=== PATIENT | female | born 1955 | race Caucasian/White ===

== ENCOUNTER 2019-08-09 10:50 | Outpatient (CLI) | payer OTHER, MEDICAID, SELFPAY ==
[2019-08-09 11:17] LABS: Basophils Absolute Auto 0.1 K/mm3 (0.0-0.1); Basophils Percent Auto 0.7 % (0.2-1.2); Eosinophils Absolute Auto 0.3 K/mm3 (0-0.3); Hematocrit 41.2 % (37.0-47.0); Hemoglobin 13.4 g/dL (12.0-15.0); Immature Granulocyte Absolute 0.01 K/mm3 (0.00-0.031); Immature Granulocyte Percent A 0.1 % (0-0.5); Lymphocytes Absolute Auto 2.47 K/mm3 (0.9-3.2); Lymphocytes Percent Auto 36.8 % (18.3-44.2); Mean Corpuscular HGB Conc 32.5 g/dl (32-36); Mean Corpuscular Hemoglobin 28.3 pg (26-34); Mean Corpuscular Volume 86.9 fl (80-100); Mean Platelet Volume 11.5 fl (7.4-10.4); Monocytes Absolute Auto 0.6 K/mm3 (0.1-0.6); Monocytes Percent Auto 8.3 % (2.6-8.5); Neutrophils Absolute Auto 3.4 K/mm3 (1.3-6.7); Neutrophils Percent Auto 50.1 % (45.5-73.1); Platelet Count Result 196 k/mm3 (150-375); Red Blood Count 4.74 M/mm3 (4.2-5.4); Red Cell Distribution Width 15.7 % (11.5-14.5); White Blood Count 6.7 K/mm3 (4.5-10.0)
[2019-08-09 11:19] LABS: Blood Urea Nitrogen 22 mg/dL (8-26); Carbon Dioxide 32 mmol/L (22-30); Chloride 96 mmol/L (98-109); Estimated Glomerular Filt Rate 42; Glucose 92 mg/dL (70-105); Potassium 3.7 mmol/L (3.5-4.9); Sodium 139 mmol/L (138-146)
[2019-08-09 14:25] LABS: Iron 88 ug/dL (37-170)
[2019-08-09 14:39] LABS: Percent Iron Saturation 27 % (20-50)
== END 2019-08-09 10:51 | disposition home or self-care (01) ==
PROVIDERS: PCP Family Medicine; Visit Provider Internal Medicine Hematology & Oncology
DX: D64.9 Anemia, unspecified (principal)
CPT/HCPCS: 36415; 80048; 82728; 83540; 83550; 85025

== ENCOUNTER → 2019-11-16 13:00 | Outpatient (CLI) | payer OTHER, MEDICAID, SELFPAY ==
--- NOTE | ~2019-11-16 | XR_ITS ---
EXAMINATION: XR_[id number]_CR DATE: 11/16/2019 13:54 INDICATION: Pleurodynia. TECHNIQUE: An anteroposterior view of the chest on 2 radiographs, 4 views of the right ribs, and 3 vi ews of the left ribs were obtained. COMPARISON: Chest 2 views 06/26/2019, chest CT 03/28/2019 FINDINGS: There is mild scarring at the lung apices. No pleural effusion or pneumothorax. Cardiomegal y is noted. There are changes of posterior fusion procedure in cervical spine. There is an old healed fracture of right 11th rib. There is an old fracture of left 11th rib. IMPRESSION: 1. No acute rib fracture. 2. Mild scarring at the lung apices. 3. Cardiomegaly. Reviewed, dictated and finalized at location E.
== END ==
PROVIDERS: PCP Family Medicine; Visit Provider Family Medicine
DX: R07.81 Pleurodynia (principal)
CPT/HCPCS: 71111

== ENCOUNTER 2019-11-29 13:30 | Outpatient (CLI) | payer OTHER, MEDICAID, SELFPAY ==
--- NOTE | 2019-11-29 13:43 | ECHO_ITS ---
Patient Info Name: Alyssa Poole Age: 64 years : 1955 Gender: Female Ht: 66 in Wt: 130 lbs BSA: 1.66 m2 HR: 74 bpm BP: 156 / 77 mmHg Technical Quality: Good Exam Date: 11/29/2019 2:15 PM Exam Location: [facility] Patient Status: Outpatient Admit Date: 11/29/2019 Staff Ordering Physician: Calos Ramos DO Program Lead: Patt Zelaya RDCS Attending Provider: Calos Ramos DO Referring Physician: Richard LOBO; Exam Type: CA echo doppler color flow Study Info Indications I51.89 - Other ill-defined heart diseases Complete two-dimensional, color flow and Doppler transthoracic echocardiogram is performed. Summary 1. Left ventricular chamber dimension is moderately enlarged. 2. Left ventricular systolic function is severely reduced, estimated at 25-30%. 3. The left ventricular diastolic function is grade II diastolic dysfunction. 4. E/e' 21 is elevated. 5. Global longitudinal strain is abnormal at -10.4%. 6. Left atrial chamber dimension is moderately enlarged. 7. The mitral valve has mildly calcified annulus. 8. There is mild to moderate mitral valve regurgitation. 9. There is mild tricuspid valve regurgitation. 10. Moderate pulmonary hypertension, estimated pulmonary arterial systolic pressure is 52 mmHg. Left Ventricle E/e' 21 is elevated. Global longitudinal strain is abnormal at -10.4%. Left ventricular chamber dimension is moderately enlarged. Left ventricular systolic function is severely reduced, estimated at 25-30%. The left ventricular diastolic function is grade II diastolic dysfunction. Right Ventricle Right ventricular chamber dimension is normal. Right ventricular systolic function is normal. Left Atria Left atrial chamber dimension is moderately enlarged. Right Atria Right atrial chamber dimension is normal. Aortic Valve The aortic valve is trileaflet. There is no aortic valve stenosis. There is no aortic valve regurgitation. Pulmonic Valve There is no pulmonic regurgitation. Mitral Valve The mitral valve has mildly calcified annulus. There is no mitral valve stenosis. There is mild to moderate mitral valve regurgitation. Tricuspid Valve There is mild tricuspid valve regurgitation. Moderate pulmonary hypertension, estimated pulmonary arterial systolic pressure is 52 mmHg. Pericardium/Pleural There is no pericardial effusion. Inferior Vena Cava Normal inferior vena cava with >50% collapse upon inspiration consistent with normal right atrial pressure, 5 mmHg. Aorta The aortic root size at the sinus of Valsalva is normal. Left Ventricular Outflow Tract Name Value Normal LVOT 2D LVOT Diameter 2.0 cm LVOT Doppler LVOT Peak Gradient 5 mmHg LVOT Mean Gradient 3 mmHg LVOT VTI 21 cm LVOT VTI/AV VTI Ratio 0.9 LVOT Stroke Volume 63 ml LVOT CO 14.0 l/min LVOT CI 8.5 l/min/m2 Pulmonic Valve
== END 2019-11-29 13:31 | disposition home or self-care (01) ==
PROVIDERS: PCP Family Medicine; Visit Provider Internal Medicine Cardiovascular Disease
DX: I51.89 Other ill-defined heart diseases (principal); I51.7 Cardiomegaly; I27.20 Pulmonary hypertension, unspecified; I08.1 Rheumatic disorders of both mitral and tricuspid valves
CPT/HCPCS: 93306

== ENCOUNTER 2020-01-20 13:28 | Inpatient (IN) | payer OTHER, MEDICAID, SELFPAY ==
[2020-01-20] VITALS (14 sets, daily range): BP systolic 109–150; BP diastolic 48–73; PULSE 53–63; RESP 10–20; TEMP 36.1–36.4; O2SAT 96–100; BMI 19.9
--- NOTE | ~2020-01-20 | XR_ITS ---
EXAMINATION: XR pelvis 1-2V INDICATION: Pain after fall TECHNIQUE: AP view of the pelvis is obtained. COMPARISON: None available FINDINGS: Bone alignment is normal. There is no fracture. The soft tissues are unremarkable. Mild hip osteoarthritis is noted. A catheter coils in the pelvis or bladder. IMPRESSION: 1. No acute osseous abnormality. Reviewed, dictated and finalized at location A.
--- NOTE | ~2020-01-20 | CT_ITS ---
EXAMINATION: CT abdomen pelvis wo con DATE: 01/20/2020 17:06 INDICATION: Epigastric pain TECHNIQUE: Computed tomography (CT) of the abdomen and pelvis was performed without intravenous contr ast. The dose-length product (DLP) was 456.68 mGy-cm. Automated exposure control and iterative recons truction technique were employed. COMPARISON: 03/28/2019 FINDINGS: There is emphysema and atelectasis in the visualized lung bases. There is left ventricular enlargement of the heart. The liver, spleen, pancreas, and gallbladder are normal. There is intrahepa tic and extrahepatic biliary dilatation. The common bile duct which measures up to 9 mm. No definite stone or stricture is identified. The adrenal glands are unremarkable. There is mild atrophy of the r ight kidney. The left kidney is unremarkable. There is calcified atherosclerosis of the aorta and man y of the other arteries. No pathologically enlarged abdominal or pelvic lymph nodes are identified. A large volume of colonic stool is present. The bladder is decompressed by Wise catheter. There is se peter lumbar spondylosis. A defect in the right ilium likely reflects a bone harvest site. IMPRESSION: 1. Intrahepatic and extrahepatic biliary dilatation of unclear significance given normal liver functi on tests. Consider further evaluation with right upper quadrant ultrasound. Reviewed, dictated and finalized at location A. IMPRESSION: 1. Intrahepatic and extrahepatic biliary dilatation of unclear significance giv en normal liver function tests. Consider further evaluation with right upper qu adrant ultrasound.
--- NOTE | ~2020-01-20 | XR_ITS ---
EXAMINATION: XR chest 1V portable INDICATION: Pain after fall TECHNIQUE: Portable AP chest at 1600 hours COMPARISON: 06/26/2019 FINDINGS: There is stable cardiomegaly. Minimal airspace opacities are present in the lung bases. No pleural effusion or pneumothorax is identified. Electronic devices project external to the patient. IMPRESSION: 1. Stable cardiomegaly. 2. Minimal airspace opacities of the lung bases, consistent with atelectasis versus pneumonia. Reviewed, dictated and finalized at location A. IMPRESSION: 1. Stable cardiomegaly. 2. Minimal airspace opacities of the lung bases, consistent with atelectasis ve rsus pneumonia.
--- NOTE | ~2020-01-20 | XR_ITS ---
EXAMINATION: XR knee RT min 4V DATE: 01/20/2020 16:14 INDICATION: Right knee pain TECHNIQUE: Four views of the right knee were obtained. COMPARISON: None. FINDINGS: Alignment is normal. No fracture or osteochondral lesion. There is mild tricompartmental os teoarthritis characterized by tiny marginal osteophytes. No joint effusion/synovitis. Soft tissues a re unremarkable. IMPRESSION: 1. No acute osseous abnormality. Reviewed, dictated and finalized at location A.
--- NOTE | ~2020-01-20 | XR_ITS ---
EXAMINATION: XR knee LT min 4V DATE: 01/20/2020 16:13 INDICATION: Left knee pain TECHNIQUE: Four views of the left knee were obtained. COMPARISON: None. FINDINGS: Alignment is normal. No fracture or osteochondral lesion. There is mild tricompartmental os teoarthritis characterized by tiny marginal osteophytes. No joint effusion/synovitis. Soft tissues a re unremarkable. IMPRESSION: 1. No acute osseous abnormality. Reviewed, dictated and finalized at location A.
--- NOTE | ~2020-01-20 | US_ITS ---
EXAMINATION: US renal BI DATE: 01/21/2020 08:33 INDICATION: Kidney failure. TECHNIQUE: Multiple ultrasound grayscale images of the kidneys were obtained. COMPARISON: CT abdomen and pelvis 01/20/2020 FINDINGS: The right kidney measures 8.2 x 2.8 x 4.0 cm. The left kidney is obscured by bowel The right kidney d emonstrates normal parenchymal echogenicity. There is no hydronephrosis. The bladder is decompressed by a Iwse catheter. IMPRESSION: 1. Mild atrophy of right kidney. No hydronephrosis. 2. Left kidney not visualized. Left kidney was normal on yesterday's CT. Reviewed, dictated and finalized at location E.
--- NOTE | ~2020-01-20 | CT_ITS ---
EXAMINATION: CT brain wo con INDICATION: Headache and dizziness COMPARISON: 06/26/2019 TECHNIQUE: Standard unenhanced head CT. The dose-length product (DLP) was 605.33 mGy-cm. The mA was a djusted according to patient size. Iterative reconstruction technique was employed. FINDINGS: There is no intracranial hemorrhage, acute infarction, or abnormal mass lesion. The ventric les are normal. There is no abnormal mass effect or midline shift. The vizcarra-white matter differentiat ion is normal. The basal cisterns are patent. The orbits are normal. The paranasal sinuses, mastoids and calvarium are normal. IMPRESSION: 1. No acute intracranial abnormality. Reviewed, dictated and finalized at location A.
--- NOTE | 2020-01-20 14:35 | ECG_ITS ---
Measurements Intervals Irvona Rate: 55 P: 71 VA: 227 QRS: 27 QRSD: 123 T: 75 QT: 494 QTc: 474 Interpretive Statements SINUS BRADYCARDIA WITH FIRST DEGREE AV BLOCK INCOMPLETE LEFT BUNDLE BRANCH BLOCK BORDERLINE R WAVE PROGRESSION, ANTERIOR LEADS BORDERLINE ST-T WAVE ABNORMALITY- INF/LAT LEADS BASELINE ARTIFACT- I, II, III, AVR, AVL, AVF, V3, V5 ABNORMAL ECG Electronically Signed On 01-20-2020 20:15:11 CDT by Calos Ramos D.O.
[2020-01-20 15:06] LABS: Base Excess ABG -2.2 mEq/l (+/-2.0); Fractional Inspired Oxygen 21 %; HCO3 ABG 25.2 mEq/l (22.0-26.0); Methemoglobin ABG 0.1 %THb (0-1.5); Oxygen Content ABG 15.1 %vol (16.0-22.0); Oxygen Saturation ABG 92.4 % (95.0-100.0); Oxyhemoglobin 91.7 % THb (90.0-100.0); PCO2 ABG 55.3 mmHg (35.0-45.0); PO2 ABG 72.5 mmHg (80.0-100.0); PO2 FiO2 Ratio Arterial Blood 3.45 %; Reduced Hemoglobin 7.2 %THb (0-5.0); Total Hemoglobin 11.7 g/dL (12.0-18.0)
[2020-01-20 15:07] LABS: Device ROOM AIR; Modified Allen's Test Pass; Site Drawn RIGHT RADIAL; pH ABG 7.277 (7.350-7.450)
--- NOTE | 2020-01-20 15:13 | PC.NURSE ---
IV obtained, patient is difficult stick. Attempted IV x 2. licensed chemical spray technician attempted blood draw x 2 but was unsucessful, phlebotomy notified.
--- NOTE | 2020-01-20 15:14 | ED.GENADULT ---
HPI - General Adult General Chief complaint: Fall Stated complaint: dizziness, fell overnight, weak Time Seen by Provider: 01/20/20 14:20 Source: patient and family Mode of arrival: EMS Limitations: clinical condition History of Present Illness HPI narrative: This patient is a 64 year old male who presents for evaluation frequent falls. Patient's sister is at bedside and she reports that patient told someone she fell around 5 am this morning. Someone crawled through the window in her house and patien was complaining of headache. Her sister also reports pain has been complaining of abdominal pain for 2 days. Patient is also having intermittent episodes on which she appears lethargic. Related Data Home Medications Medication Instructions Recorded Confirmed Effexor XR 100 mg PO BID 05/19/19 12/05/19 methadone 200 mg PO DAILY 05/19/19 12/05/19 omeprazole 20 mg PO DAILY 05/19/19 12/05/19 albuterol sulfate 1.25 mg INHALATION Q4H PRN 06/26/19 12/05/19 ferrous sulfate 325 mg (65 mg 325 mg PO DAILY 11/06/19 12/05/19 iron) tablet,delayed release sacubitril-valsartan [Entresto] 01/20/20 Allergies Allergy/AdvReac Type Severity Reaction Status Date / Time codeine Allergy Unknown Unknown Verified 12/05/19 14:29 Iodinated Contrast Media Allergy Unknown Unknown Verified 12/05/19 14:29 iodine Allergy Unknown Anaphylactic Verified 12/05/19 14:29 Shock Iodine and Iodide Containing Allergy Unknown Anaphylaxis Verified 12/05/19 14:29 Produc tramadol Allergy Unknown Unknown Verified 12/05/19 14:29 NSAIDS (Non-Steroidal Allergy Unknown Verified 12/05/19 14:29 Anti-Inflamma Contrast Media Allergy Unknown Unknown Uncoded 12/05/19 14:29 Review of Systems Review of Systems: All systems reviewed & are unremarkable except as noted in HPI and below Constitutional: Constitutional: Denies chills, Denies fever(s) and Reports weakness Cardiovascular: Cardiovascular: Denies chest pain Respiratory: Respiratory: Denies cough and Denies dyspnea Gastrointestinal: Gastrointestinal: Reports abdominal pain and Denies nausea Musculoskeletal: Musculoskeletal: Reports back pain and Reports arthralgias Neurologic: Reports headache(s) [facility] Past Medical History Medical History (Updated 01/20/20 @ 19:28 by Opal Gutierrez MD) Anxiety disorder, unspecified Arthritis Atherosclerosis of aorta Chronic bilateral low back pain without sciatica Chronic pain syndrome CKD (chronic kidney disease) stage 3, GFR 30-59 ml/min Combined systolic and diastolic cardiac dysfunction Echocardiogram in January 2019 showed mildly enlarged left ventricular chamber dimension, moderately reduced left ventricular systolic function with an ejection fraction estimated at 40 to 45%, grade 4 diastolic dysfunction, biatrial enlargement, [id number] mitral valve regurgitation, mild tricuspid valve regurgitation. 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 Memory deficits Methadone maintenance therapy patient Mixed hyperlipidemia Mixed incontinence Moderate pulmonary arterial systolic hypertension Estimated pulmonary arterial systolic pressure of 54 mmHg on echocardiogram in January 2019. Myocardial infarct, old Reportedly hospitalized at [facility], treated medically. Neurotic excoriations Raynaud disease She has had extensive testing done by a local cover inspector, for which she ruled
--- NOTE | 2020-01-20 15:46 | PC.NURSE ---
Phlebotomy attempted blood draw, unsuccessful. US nurse notified and states will attempt to obtain blood.
--- NOTE | 2020-01-20 15:50 | PC.NURSE ---
Patient taken to XR/CT, will have US nurse attempt blood draw when return to ED.
[2020-01-20 16:30] LABS: Basophils Absolute Auto 0.1 K/mm3 (0.0-0.1); Basophils Percent Auto 0.8 % (0.2-1.2); Eosinophils Absolute Auto 1.1 K/mm3 (0-0.3); Eosinophils Percent Auto 15.1 % (0-4.4); Hematocrit 31.9 % (37.0-47.0); Hemoglobin 10.8 g/dL (12.0-15.0); Immature Granulocyte Absolute 0.02 K/mm3 (0.00-0.031); Immature Granulocyte Percent A 0.3 % (0-0.5); Lymphocytes Percent Auto 29.3 % (18.3-44.2); Mean Corpuscular HGB Conc 33.9 g/dl (32-36); Mean Corpuscular Hemoglobin 28.8 pg (26-34); Mean Corpuscular Volume 85.1 fl (80-100); Mean Platelet Volume 11.1 fl (7.4-10.4); Monocytes Absolute Auto 0.6 K/mm3 (0.1-0.6); Monocytes Percent Auto 8.8 % (2.6-8.5); Neutrophils Absolute Auto 3.3 K/mm3 (1.3-6.7); Neutrophils Percent Auto 45.7 % (45.5-73.1); Platelet Count Result 191 k/mm3 (150-375); Red Blood Count 3.75 M/mm3 (4.2-5.4); Red Cell Distribution Width 13.2 % (11.5-14.5); White Blood Count 7.2 K/mm3 (4.5-10.0)
--- NOTE | 2020-01-20 16:30 | PC.NURSE ---
Blood obtained per Arnaud ROBERSON, sent to lab at this time.
[2020-01-20 16:35] LABS: Add Urine Microscopic? YES; Appearance Urine Clear (Clear); Bilirubin Urine Negative (Negative); Blood Urine Negative (Negative); Color Urine Straw (Yellow); Glucose Urine UA Negative (Negative); Ketones Urine Negative (Negative); Leukocyte Esterase Ur Trace LEU/UL (Negative); Nitrate Urine Negative (Negative); Protein Urine Negative (Negative); Specific Grav Ur 1.011 (1.001-1.035); Urobilinogen Urine Negative mg/dL (<2.0); WBC Urine 0-3 /hpf
[2020-01-20 16:37] LABS: INR 1.1; Prothrombin Time 14.3 Seconds (11.1-14.7)
[2020-01-20 16:38] LABS: Partial Thromboplastin Time 33.9 SECONDS (22.3-36.8)
[2020-01-20 16:40] LABS: Alanine Aminotransferase 18 U/L (4-35); Albumin Level 3.9 g/dL (3.5-5.1); Alkaline Phosphatase 108 U/L (38-126); Anion Gap 15.4 mmol/L (7-16); Aspartate Amino Transferase 35 U/L (14-36); Bilirubin,Total 0.2 mg/dL (0.2-1.3); Blood Urea Nitrogen 93 mg/dL (7-17); Calcium 8.4 mg/dL (8.4-10.2); Carbon Dioxide 25 mmol/L (22-30); Chloride 97 mmol/L (98-107); Estimated CRCL calculation 10 ml/min; Estimated Glomerular Filt Rate 9; Glucose 73 mg/dL (65-105); Potassium 4.4 mmol/L (3.4-5.0); Sodium 133 mmol/L (137-145)
[2020-01-20 16:41] LABS: Lipase 87 U/L (23-300); Magnesium 2.6 mg/dL (1.6-2.3)
[2020-01-20 16:48] LABS: Lactic Acid Reflex < 0.5 mmol/L (0.7-2.1)
[2020-01-20 16:52] LABS: Troponin I < 0.012 ng/mL (0.000-0.034)
[2020-01-20] MEDS: SODIUM CHLORIDE 0.9% IV 1,000 ML 999 ML IV CONT (16:56)
[2020-01-20 18:00] LABS: Creatine Kinase 280 U/L (30-135)
[2020-01-20 18:14] LABS: Alveolar/Arterial O2 Gradient 20.4 mmHg; Base Excess ABG -2.6 mEq/l (+/-2.0); Carboxyhemoglobin 0.7 % THb (0-2.0); Fractional Inspired Oxygen 21 %; HCO3 ABG 24.7 mEq/l (22.0-26.0); Oxygen Content ABG 14.5 %vol (16.0-22.0); Oxygen Saturation ABG 89.4 % (95.0-100.0); PCO2 ABG 54.4 mmHg (35.0-45.0); PO2 ABG 64.2 mmHg (80.0-100.0); PO2 FiO2 Ratio Arterial Blood 3.06 %; Reduced Hemoglobin 9.3 %THb (0-5.0); Total Hemoglobin 11.4 g/dL (12.0-18.0)
[2020-01-20 18:14] LABS: Glucose Point of Care 88 (65-105)
[2020-01-20 18:15] LABS: pH ABG 7.275 (7.350-7.450)
[2020-01-20 18:16] LABS: Device ROOM AIR; Site Drawn LEFT BRACHIAL
--- NOTE | 2020-01-20 18:24 | PC.NURSE ---
Patient A/O at this time, Dr. Gutierrez states to not administer narcan at this time.
[2020-01-20] MEDS: IPRATROPIUM BR 0.02% INH SOLN 0.5 MG/2.5 ML VIAL INHALATION (20:05)
[2020-01-20] MEDS: ALBUTEROL SULFATE NEB 2.5 MG/0.5 ML INH 5 MG INHALATION (20:05)
[2020-01-20] MEDS: SODIUM CHLORIDE 0.9% IV 1,000 ML 50 ML IV CONT (20:19)
[2020-01-20 20:50] LABS: Glucose Point of Care 71 (65-105)
--- NOTE | 2020-01-20 21:40 | ADMIMU ---
This patient, Alyssa Poole, was admitted to IMU status, and placed in IMU Room 204-01 on 01/20/20 at 1947 . Patient/family oriented to hospital policies and general routines including ID bracelet, bed and alarms, visiting hours, pain management, procedures, bathroom and other care routines, personal items, smoking policy, room service/diet, and visiting hours. Valuables list has been completed. Information on how to activate the Rapid Response Team has been discussed. Patient/Family are encouraged to report perceived risks to care and to ask questions if they do not understand what they are told or what they should do.
[2020-01-20 22:21] LABS: Creatinine Urine 41.9 mg/dL
[2020-01-20 22:22] LABS: Potassium Urine Random 11.6 meq/L; Sodium Urine Random 75 meq/L
[2020-01-20] MEDS: ACETAMINOPHEN 325 MG TABLET 650 MG PO (23:22)
[2020-01-21] VITALS (25 sets, daily range): BP systolic 89–155; BP diastolic 49–65; PULSE 55–65; RESP 16–20; TEMP 35.7–36.6; O2SAT 97–100
[2020-01-21] MEDS: IPRATROPIUM BR 0.02% INH SOLN 0.5 MG/2.5 ML VIAL INHALATION ×3 (02:08→14:37)
[2020-01-21] MEDS: ALBUTEROL SULFATE NEB 2.5 MG/0.5 ML INH 5 MG INHALATION ×3 (02:08→14:37)
--- NOTE | 2020-01-21 02:51 | PM.IMHP ---
H&P: HPI History of Present Illness Chief complaint: fall, weakness Narrative: date and time of patient contact: 01/21/2020 at 3:00 a.m. Alyssa Poole is a 64 year old female with a past medical history of chronic pain syndrome on chronic methadone, chronic hypercarbia, chronic bolus emphysema and bronchiectasis, and chronic combined systolic diastolic heart failure with life vest who presented to the ER via EMS after being found on the floor. the patient reported that she had gotten up to go to the bathroom and tripped over 1 of her dog's toys. The young man who live next door climb through her window to help her get up. She reports a current headache and neck pain. She states that she thinks the pain is more due to withdrawing from her methadone. She reports that her bones ache due to missing her methadone dose on the . She reports that she has several current medical problems ongoing. She had been having lower extremity swelling for months when she got into to see a legal billing clerk in November she had an echocardiogram which demonstrated cardiomyopathy with the EF of 25-30% she was subsequently placed on a LifeVest by Dr. Ramos. She was also started on Lasix, spironolactone and Entresto. with the initiation of these medications the patient developed Lightheadedness. Her lower extremity edema has resolved. She is actually having some difficulty urinating. She will have difficulty starting her urinary stream. She denies any decreased urine output. However since the patient has been admitted to the hospital she has only had about 250 mL of urine output. The patient has chronic gait instability and has been undergoing physical therapy for year. She has occasional constipation and her last bowel movement was 2 or 3 days ago. She denies any hematochezia or melena. She has not been having any chest pain or shortness of breath. She denies any cough or congestion. The patient is only a fair historian. She is alert and oriented to everything except for year. She thought the year was 2014. Review of Systems Review of Systems: Narrative: 12 systems were reviewed with pertinent positives and negatives per HPI. Except as documented in the HPI, all other systems were reviewed and are negative. [facility] Past Medical History Medical History (Updated 01/21/20 @ 08:03 by Kiana Meza DO) Anxiety disorder, unspecified Arthritis Atherosclerosis of aorta Chronic bilateral low back pain without sciatica Chronic hypercapnic respiratory failure Chronic pain syndrome CKD (chronic kidney disease) stage 3, GFR 30-59 ml/min Combined systolic and diastolic cardiac dysfunction Echocardiogram November 29, 2019 demonstrated echocardiogram of 25-30%, grade 2 diastolic dysfunction, moderate left ventricular enlargement, mild to moderate mitral valve regurgitation, moderate pulmonary hypertension with RVSP of 52 . 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 Memory deficits Methadone maintenance therapy patient Mixed hyperlipidemia Mixed incontinence Moderate pulmonary arterial systolic hypertension Estimated pulmonary arterial systolic pressure of 52 mmHg on echocardiogram in November 2019 Myocardial infarct, old Reportedly hospitalized at [facility], treated medically. Neurotic excoriations Raynaud disease She has had extensive testing done by a local spanish speaking nanny, for which she ruled out for sclero
[2020-01-21] MEDS: ACETAMINOPHEN 325 MG TABLET 650 MG PO ×2 (04:17→21:17)
[2020-01-21 04:20] LABS: Basophils Absolute Auto 0.1 K/mm3 (0.0-0.1); Eosinophils Absolute Auto 0.9 K/mm3 (0-0.3); Eosinophils Percent Auto 11.6 % (0-4.4); Hematocrit 34.8 % (37.0-47.0); Hemoglobin 11.4 g/dL (12.0-15.0); Immature Granulocyte Absolute 0.01 K/mm3 (0.00-0.031); Immature Granulocyte Percent A 0.1 % (0-0.5); Lymphocytes Percent Auto 30.1 % (18.3-44.2); Mean Corpuscular HGB Conc 32.8 g/dl (32-36); Mean Corpuscular Hemoglobin 28.6 pg (26-34); Mean Corpuscular Volume 87.2 fl (80-100); Mean Platelet Volume 11.3 fl (7.4-10.4); Monocytes Absolute Auto 0.5 K/mm3 (0.1-0.6); Monocytes Percent Auto 6.7 % (2.6-8.5); Neutrophils Absolute Auto 3.7 K/mm3 (1.3-6.7); Neutrophils Percent Auto 50.5 % (45.5-73.1); Platelet Count Result 175 k/mm3 (150-375); Red Blood Count 3.99 M/mm3 (4.2-5.4); White Blood Count 7.3 K/mm3 (4.5-10.0)
[2020-01-21 05:05] LABS: Alanine Aminotransferase 16 U/L (4-35); Albumin Level 3.6 g/dL (3.5-5.1); Alkaline Phosphatase 102 U/L (38-126); Anion Gap 15.4 mmol/L (7-16); Aspartate Amino Transferase 31 U/L (14-36); Bilirubin,Total 0.4 mg/dL (0.2-1.3); Blood Urea Nitrogen 84 mg/dL (7-17); Calcium 8.4 mg/dL (8.4-10.2); Carbon Dioxide 21 mmol/L (22-30); Chloride 104 mmol/L (98-107); Estimated CRCL calculation 13 ml/min; Estimated Glomerular Filt Rate 13; Glucose 58 mg/dL (65-105); Potassium 4.4 mmol/L (3.4-5.0); Sodium 136 mmol/L (137-145)
[2020-01-21 05:09] LABS: Creatine Kinase 196 U/L (30-135)
[2020-01-21 05:12] LABS: Glucose Point of Care 137 (65-105)
--- NOTE | 2020-01-21 05:12 | PC.NURSE ---
Dread Carrero called to verify methadone dosage. On-call personnel paged-awaiting return call.
[2020-01-21 05:33] LABS: Alveolar/Arterial O2 Gradient 23.3 mmHg; Base Excess ABG -0.4 mEq/l (+/-2.0); Carboxyhemoglobin 0.4 % THb (0-2.0); Fractional Inspired Oxygen 21 %; Methemoglobin ABG 0.2 %THb (0-1.5); Oxygen Saturation ABG 91.6 % (95.0-100.0); Oxyhemoglobin 91.5 % THb (90.0-100.0); PCO2 ABG 50.4 mmHg (35.0-45.0); PO2 ABG 66.1 mmHg (80.0-100.0); PO2 FiO2 Ratio Arterial Blood 3.15 %; Reduced Hemoglobin 7.9 %THb (0-5.0); Total Hemoglobin 12.4 g/dL (12.0-18.0); pH ABG 7.331 (7.350-7.450)
[2020-01-21 05:34] LABS: Device ROOM AIR; Modified Allen's Test Pass; Site Drawn LEFT RADIAL
--- NOTE | 2020-01-21 05:38 | PC.NURSE ---
Clarification of Methadone dosage: Lashay the preparation supervisor nurse for [facility] returned page to clarify that patient does take 225mg of 10mg/ml methadone once a day.
[2020-01-21] MEDS: GABAPENTIN 300 MG CAPSULE PO ×4 (08:33→21:17)
[2020-01-21] MEDS: METHADONE HCL 5 MG PO ×3 (08:34→21:17)
[2020-01-21] MEDS: PANTOPRAZOLE SOD SESQUIHYDRATE 20 MG TAB PO (08:34)
[2020-01-21] MEDS: VENLAFAXINE HCL 75 MG TABLET 300 MG PO (08:38)
[2020-01-21] MEDS: HEPARIN SODIUM 5,000 UNITS/ML VIAL 5000 UNITS SUB-Q ×2 (08:39→21:16)
[2020-01-21] MEDS: carvediloL 3.125 MG TABLET PO ×2 (08:39→21:17)
[2020-01-21 08:56] LABS: Glucose Point of Care 133 (65-105)
--- NOTE | 2020-01-21 10:29 | PM.CNCAR ---
Assessment and Plan Assessment and plan (1) Acute renal failure: Qualifiers: Acute renal failure type: with acute renal cortical necrosis Qualified Code(s): N17.1 - Acute kidney failure with acute cortical necrosis Code(s): N17.9 - Acute kidney failure, unspecified Status: Acute Assessment and Plan: Nephrology consulted. Probably over-diuresed and could be related to starting Entresto. (2) Tobacco abuse: Code(s): Z72.0 - Tobacco use Status: Acute Assessment and Plan: Counseled regarding smoking cessation. (3) Combined systolic and diastolic cardiac dysfunction: Code(s): I51.89 - Other ill-defined heart diseases Status: Acute Assessment and Plan: She has Life Vest on to prevent sudden cardiac arrest. Agree with IVF NS at 50 ml/hr to rehydrate and improve kidney function. Agree to hold Lasix and Spironolactone, and will eventually need to go back on low dose Lasix to maintain euvolemia. Would consider grzegorz inh or ARB rather than Entresto once kidney function stabilizes in order to improve EF. (4) Chronic obstructive pulmonary disease: Qualifiers: COPD type: unspecified COPD Qualified Code(s): J44.9 - Chronic obstructive pulmonary disease, unspecified Code(s): J44.9 - Chronic obstructive pulmonary disease, unspecified Status: Acute History of Present Illness History of Present Illness Consult date/time: 01/21/20 10:29 Reason for consult: Cardiomyopathy. 64 yr old woman who is my regular cardiology patient who presents to hospital after tripping and falling over a toy. She hit her head on the floor as a result and was too weak to get back up herself. Her neighbor was able to help her up and called EMS who brought her to ER. Currently having some headaches but she thinks it could be from not receiving her usual Methadone dose. She has a history of combined systolic and diastolic heart failure that got worse last month to EF 25-30%, smoking, COPD, on methadone due to being on Fentanyl for years to prevent withdrawal. Due to worsening cardiomyopathy she was started on Life Vest in November 2019 to prevent sudden cardiac arrest and she is wearing it now. It was noted she was not on a Grzegorz Inh or ARB for the last few months, so Entresto was started. Her labs show acute renal failure with Cr up to 4.8 with Cr Cl 10 yesterday and improved to Cr 3.6 and CrCl 13 today. She had only mild kidney impairment prior to Entreo with Cr 1.3 and Cr Cl 42 in Jul 2019. EKG shows sinus bradycardia with first degree AV block, ILBBB, BRWP, borderline ST-T wave in inf/lat leads. Still limited with TORRES, chronic back and leg pain at minimal distance. No orthopnea. Still smokes 2-3 cigarettes per day. She reports pain in her left side from ribs down to pelvis with movement or walking. Denies chest pain, sob, edema, orthopnea or paroxysmal nocturnal dyspnea. Cardiovascular Procedures 11/29/19 EF 25-30%, mod LVE, grade II diastolic dysfunction (E/e' 21), mod LAE, mild-mod MR, mild MAC, mild TR, RVSP 52 mmHg. Echo/MUGA:: 02/15/19 EF 40-45%, mild LVE, mod LV systolic dysfunction, grade IV diastolic dysfunction (E/e' 26), mod LAE, mild JOSEF, mild MAC/MV thickening, mild-mod MR, mild TR, RVSP 54 mmHg s/p mod pulm hypertension, small pericardial effusion. Electrophysiology:: 01/21/20 EKG: Sinus bradycardia with first degree AV block, ILBBB, BRWP, borderline ST-T wave in inf/lat leads 01/25/19 Sinus rhythm, ILBBB, prolonged QT interval at 507 ms, borderline ST-T wave in lateral leads. Stress Tests:: 02/15/19 Lexiscan myoview: Negative for ischemia. Reason For Visit: fall, weakness Review of Systems Review of Systems: All systems reviewed & are unremarkable except as noted in HPI and below Constitutional: Constitutional: Reports as per HPI and Denies chills Cardiovascular: Cardiovascular: Reports as per HPI, Denies chest pain and Denies leg edema Respiratory: Respiratory: Reports
--- NOTE | 2020-01-21 12:11 | PM.CNNEP ---
Assessment and Plan Assessment and plan (1) Acute renal failure: Qualifiers: Acute renal failure type: with acute renal cortical necrosis Qualified Code(s): N17.1 - Acute kidney failure with acute cortical necrosis Code(s): N17.9 - Acute kidney failure, unspecified Status: Acute Assessment and Plan: The patient may or may not have underlying kidney disease. Her serum creatinine has generally been okay. In July however she did have an outpatient creatinine of 1.3. Will see how much better her creatinine gets now and if it is still a bit elevated then that would assure the diagnosis of CKD 3. The patient does have acute kidney injury now. It sounds like she has been having problems with dehydration for a while. Dr. Shields did decrease her diuretics by eliminating the loop diuretic. However in the last week or so she has not been eating very well. So she probably has become dehydrated. She is thin and she does not have much reserve. In addition because of her poor cardiac output she does have chronic pre renal azotemia to begin with. Patient does have some bladder emptying problems. She has some hesitancy with urination as well. It is remotely possible that she might have some obstruction from bladder outlet obstruction. We can get an ultrasound to check on this. She does have Raynaud's and also rheumatoid arthritis list is diagnoses for her. She has seen a liquid sugar fortifier to feels that she does not have Sjogren's. She is not on any active treatment for her collagen vascular diseases. It is possible that she might have some sort of a glomerulonephritis causing her creatinine to be elevated. Generally this would be characterized by swelling, hypertension, dysuria, blood in the urine and protein in the urine. However she has none of any of these. Interstitial nephritis is always a possibility but she has not been placed on any new medications. She does not take any NSAIDs, in fact she is allergic. At this point will get urine electrolytes and eosinophils. Will check a renal ultrasound. Will continue to give IV fluids and see how much better her kidneys get. We can check a sed rate Etc just make sure there isn't anything inflammatory going on. (2) Combined systolic and diastolic cardiac dysfunction: Code(s): I51.89 - Other ill-defined heart diseases Status: Acute Assessment and Plan: the patient has a low ejection fraction also has diastolic dysfunction. 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 (3) Chronic hypercapnic respiratory failure: Code(s): J96.12 - Chronic respiratory failure with hypercapnia Status: Acute Assessment and Plan: She has emphysema. (4) Tobacco abuse: Code(s): Z72.0 - Tobacco use Status: Acute Assessment and Plan: She continues to smoke half a pack per day. (5) Essential hypertension: Code(s): I10 - Essential (primary) hypertension Status: Acute Assessment and Plan: Her blood pressure is well controlled. (6) Raynaud disease: Code(s): I73.00 - Raynaud's syndrome without gangrene Status: Acute Assessment and Plan: No symptoms of this currently. History of Present Illness Reason for Consult Consult date: 01/21/20 Chief Complaint Chief complaint: fall, weakness History of Present Illness Narrative: Alyssa is a very pleasant 64-year-old lady who has multiple medical problems including congestive heart failure with an EF around 30, myocardial infarction,occasional elevation of serum creatinine, COPD with CO2 retention, pulmonary hypertension, chronic pain syndrome on methadone, Raynaud's, rheumatoid arthritis, depression, GERD, hyperlipidemia, hypertension, incontinence. The patient was recently diagnosed with congestive heart failure. She has been following with Dr. shields for this. Her echocardiogram
[2020-01-21 12:20] LABS: Glucose Point of Care 131 (65-105)
[2020-01-21 16:45] LABS: Creatine Kinase 142 U/L (30-135)
[2020-01-21 17:05] LABS: Erythrocyte Sedimentation Rate 67 mm/hr (0-20)
[2020-01-21] MEDS: SODIUM CHLORIDE 0.9% IV 1,000 ML 50 ML IV CONT (17:19)
--- NOTE | 2020-01-21 17:21 | PM.IMPN ---
Progress Note: A&P Assessment and Plan (1) Acute renal failure: Qualifiers: Acute renal failure type: with acute renal cortical necrosis Qualified Code(s): N17.1 - Acute kidney failure with acute cortical necrosis Code(s): N17.9 - Acute kidney failure, unspecified Status: Acute Assessment and Plan: Possibly prerenal in nature given the patient's multiple diuretic Use or due to nephrotoxic medications with Entresto use. the patient's spironolactone, Entresto and Lasix have been held. The patient did receive 1 L normal saline bolus in the ER and she is receiving 50 mL an hour of normal saline. Will need to monitor her fluid status closely given her ejection fraction of 20%. repeat electrolyte panel has been ordered for this a.m.. Renal ultrasound has been ordered. Nephrology has been consulted. 01/21/20 17:21 patient is 64-year-old female with history of systolic diastolic congestive heart with ejection fraction of 25-30%, chronic pain for which patient is on methadone, and history of rheumatoid arthritis, apparently patient fell at home, see tripped over toy, see was not able to get up from the floor and her neighbor helped her and called EMS and patient was brought to the emergency department for further evaluation, patient is found to have acute on chronic kidney disease with significant elevation of BUN andcreatinine 93 and 4.8 respectively, patient is seen by Nephrology and suspect most likely dehydration as well as patient was diuresed with furosemide, spironolactone, and entersto, most likely multifactorial, workup is in progress, patient was seen by Cardiology and patient is off furosemide spironolactone and entersto, patient is being gently hydrate very carefully as her EF is 25-30%, will continue to monitor (2) Chronic hypercapnic respiratory failure: Code(s): J96.12 - Chronic respiratory failure with hypercapnia Status: Acute Assessment and Plan: the patient's hypercarbia appears relatively stable compared to prior values. The majority of patient's acidosis is metabolic in nature. Will repeat ABG this a.m.. (3) Chronic pain syndrome: Code(s): G89.4 - Chronic pain syndrome Status: Acute Assessment and Plan: Patient was actually significantly somnolent in the ER. She has asked for pain medications multiple times since admission but when the nurse goes back into the room to re-evaluate the patient she is sleeping again. Nursing staff contacted the center that prescribes the patient's methadone. Her methadone dose was confirmed. after multiple discussions with pharmacy they feel more comfortable giving the patient 75 mg of methadone 3 times a day instead of giving her 225 mg once a day. We do not have the liquid formulation of the methadone that the patient usually takes at home. The patient reports that she has not had her methadone since the morning of the . Despite not having her methadone dosing yesterday patient was somnolent in the ER. Will need to watch the patient's neuro status closely. (4) Prolonged QT interval: Code(s): R94.31 - Abnormal electrocardiogram [ECG] [EKG] Status: Acute Assessment and Plan: the patient's Zofran and hydroxyzine will be discontinued. Will need to monitor the patient on telemetry given her QT prolongation with the use of methadone. Subjective Date/time seen: 01/21/20 17:21 patient is 64-year-old female with history of systolic diastolic congestive heart with ejection fraction of 25-30%, chronic pain for which patient is on methadone, and history of rheumatoid arthritis, apparently patient fell at home, see tripped over toy, see was not able to get up from the floor and her neighbor helped her and called EMS and patient was brought to the emergency department for further evaluation, patient is found to have acute on chronic kidney disease with significant elev
[2020-01-21 17:22] LABS: Glucose Point of Care 145 (65-105)
[2020-01-21 21:07] LABS: Glucose Point of Care 123 (65-105)
[2020-01-22] VITALS (25 sets, daily range): BP systolic 103–161; BP diastolic 56–64; PULSE 55–81; RESP 16–22; TEMP 36.3–36.8; O2SAT 97–100
[2020-01-22] MEDS: ALBUTEROL SULFATE NEB 2.5 MG/0.5 ML INH 5 MG INHALATION ×4 (01:33→19:37)
[2020-01-22] MEDS: IPRATROPIUM BR 0.02% INH SOLN 0.5 MG/2.5 ML VIAL INHALATION ×4 (01:33→19:38)
[2020-01-22 05:11] LABS: Basophils Absolute Auto 0.1 K/mm3 (0.0-0.1); Basophils Percent Auto 0.6 % (0.2-1.2); Eosinophils Absolute Auto 0.8 K/mm3 (0-0.3); Eosinophils Percent Auto 10.7 % (0-4.4); Hematocrit 30.9 % (37.0-47.0); Hemoglobin 10.2 g/dL (12.0-15.0); Immature Granulocyte Absolute 0.01 K/mm3 (0.00-0.031); Immature Granulocyte Percent A 0.1 % (0-0.5); Lymphocytes Absolute Auto 2.27 K/mm3 (0.9-3.2); Lymphocytes Percent Auto 29.3 % (18.3-44.2); Mean Corpuscular Hemoglobin 28.7 pg (26-34); Mean Platelet Volume 12.1 fl (7.4-10.4); Monocytes Absolute Auto 0.6 K/mm3 (0.1-0.6); Neutrophils Percent Auto 51.3 % (45.5-73.1); Platelet Count Result 188 k/mm3 (150-375); Red Blood Count 3.55 M/mm3 (4.2-5.4); Red Cell Distribution Width 13.1 % (11.5-14.5); White Blood Count 7.7 K/mm3 (4.5-10.0)
[2020-01-22 05:29] LABS: Alanine Aminotransferase 15 U/L (4-35); Albumin Level 3.4 g/dL (3.5-5.1); Alkaline Phosphatase 92 U/L (38-126); Anion Gap 11.5 mmol/L (7-16); Aspartate Amino Transferase 25 U/L (14-36); Bilirubin,Total 0.2 mg/dL (0.2-1.3); Blood Urea Nitrogen 69 mg/dL (7-17); Calcium 8.5 mg/dL (8.4-10.2); Carbon Dioxide 25 mmol/L (22-30); Chloride 105 mmol/L (98-107); Estimated CRCL calculation 17 ml/min; Estimated Glomerular Filt Rate 17; Glucose 78 mg/dL (65-105); Phosphorus 4.5 mg/dL (2.5-4.5); Potassium 4.5 mmol/L (3.4-5.0); Sodium 137 mmol/L (137-145)
[2020-01-22] MEDS: METHADONE HCL 5 MG PO ×3 (06:11→21:06)
[2020-01-22] MEDS: ACETAMINOPHEN 325 MG TABLET 650 MG PO ×3 (06:24→21:07)
--- NOTE | 2020-01-22 07:44 | PM.PNCARD ---
Progress Note: A&P Assessment and Plan (1) Acute renal failure: Qualifiers: Acute renal failure type: with acute renal cortical necrosis Qualified Code(s): N17.1 - Acute kidney failure with acute cortical necrosis Code(s): N17.9 - Acute kidney failure, unspecified Status: Acute Assessment and Plan: Nephrology following. Probably over-diuresed and could be related to starting Entresto. (2) Tobacco abuse: Code(s): Z72.0 - Tobacco use Status: Acute (3) Combined systolic and diastolic cardiac dysfunction: Code(s): I51.89 - Other ill-defined heart diseases Status: Acute Assessment and Plan: She has Life Vest on to prevent sudden cardiac arrest. On Coreg. Agree with IVF NS at 50 ml/hr to rehydrate and improve kidney function. Agree to hold Lasix and Spironolactone, and will eventually need to go back on low dose Lasix to maintain euvolemia. Would consider georgette inh or ARB rather than Entresto once kidney function stabilizes in order to improve EF. Subjective Date/time seen: 01/22/20 07:44 Reports no chest pain or sob. Exam Const: General: comfortable and no acute distress Neck: Neck: no JVD Carotids: no bruits Resp: Auscultation: clear to auscultation bilaterally, no crackles, no rales, no rhonchi and no wheezes Cardio: Rate: regular rate Rhythm: regular rhythm Heart sounds: no murmurs GI: Inspection: non-distended Neuro: Speech: normal speech Extrem: Right lower extremity: no edema Left lower extremity: no edema Objective Data Vital Signs Vital Signs: Vital Signs - 24 hr 01/21/20 08:00 01/21/20 08:34 01/21/20 08:36 Temperature 96.4 F L Pulse Rate 60 64 Respiratory Rate 16 16 Blood Pressure 126/54 L Pulse Oximetry 97 97 01/21/20 08:39 01/21/20 08:51 01/21/20 10:00 Temperature Pulse Rate 62 60 64 Respiratory Rate 16 Blood Pressure Pulse Oximetry 01/21/20 12:00 01/21/20 14:00 01/21/20 14:40 Temperature 96.4 F L Pulse Rate 60 64 55 L Respiratory Rate 16 16 Blood Pressure 89/49 L Pulse Oximetry 100 01/21/20 14:49 01/21/20 16:00 01/21/20 18:30 Temperature 97.2 F L Pulse Rate 60 60 58 L Respiratory Rate 16 20 Blood Pressure 155/65 H Pulse Oximetry 100 01/21/20 19:47 01/21/20 20:00 01/21/20 21:17 Temperature 97.9 F Pulse Rate 55 L 57 L 57 L Respiratory Rate 18 Blood Pressure 139/52 L Pulse Oximetry 98 01/21/20 22:00 01/21/20 23:31 01/22/20 00:00 Temperature 97.7 F Pulse Rate 57 L 56 L 56 L Respiratory Rate 18 Blood Pressure 120/50 L Pulse Oximetry 99 01/22/20 01:33 01/22/20 01:36 01/22/20 01:44 Temperature Pulse Rate 57 L 57 L 58 L Respiratory Rate 16 16 16 Blood Pressure Pulse Oximetry 97 01/22/20 02:00 01/22/20 04:00 01/22/20 06:00 Temperature 98.2 F Pulse Rate 59 L 56 L 60 Respiratory Rate 16 Blood Pressure 103/61 Pulse Oximetry 100 01/22/20 07:21 Temperature 97.8 F Pulse Rate 58 L Respiratory Rate 18 Blood Pressure 141/56 H Pulse Oximetry 100 Intake/Output Intake/Output: Intake & Output 01/19/20 01/20/20 01/21/20 01/22/20 23:59 23:59 23:59 23:59 Intake Total 1000 1975 1028 Output Total 1822 Balance 7188 409 6107 Meds/Results Medications: Active Medications Generic Name Dose Route Start Last Admin Trade Name Freq PRN Reason Stop Dose Admin Acetaminophen 650 mg 01/21/20 02:23 01/22/20 06:24 Tylenol Tablet PO 650 mg Q4H PRN Administration Mild Pain (1-3) or Fever Albuterol 5 mg 01/20/20 20:00 01/22/20 01:33 Albuterol Sulf Neb 2.5mg/0.5ml INHALATION 5 mg Q6HRT FABIOLA Administration Budesonide/Formoterol Fumarate 2 puff 01/21/20 08:00 01/21/20 20:07 Symbicort 160-4.5 Mcg (*Sp) Inhaler INHALATION Not Given Q12HRT FABIOLA Carvedilol 3.125 mg 01/21/20 09:00 01/21/20 21:17 Coreg PO 3.125 mg Q12HR FABIOLA Administration Dextrose 12.5 gm 01/21/20 06:09
[2020-01-22 08:41] LABS: Glucose Point of Care 66 (65-105)
[2020-01-22] MEDS: carvediloL 3.125 MG TABLET PO ×2 (09:58→21:06)
[2020-01-22] MEDS: VENLAFAXINE HCL 75 MG TABLET 300 MG PO (09:58)
[2020-01-22] MEDS: GABAPENTIN 300 MG CAPSULE PO ×4 (10:00→21:07)
[2020-01-22] MEDS: HEPARIN SODIUM 5,000 UNITS/ML VIAL 5000 UNITS SUB-Q ×2 (10:00→21:06)
[2020-01-22] MEDS: PANTOPRAZOLE SOD SESQUIHYDRATE 20 MG TAB PO (10:00)
[2020-01-22 12:25] LABS: Complement C3 78 mg/dL (88-165)
[2020-01-22 12:26] LABS: Glucose Point of Care 363 (65-105)
[2020-01-22 12:26] LABS: Glucose Point of Care 120 (65-105)
[2020-01-22] MEDS: SODIUM CHLORIDE 0.9% IV 1,000 ML 50 ML IV CONT (12:28)
--- NOTE | 2020-01-22 13:45 | PM.PNNEP ---
Progress Note: A&P Assessment and Plan (1) Acute renal failure: Qualifiers: Acute renal failure type: with acute renal cortical necrosis Qualified Code(s): N17.1 - Acute kidney failure with acute cortical necrosis Code(s): N17.9 - Acute kidney failure, unspecified Status: Acute Assessment and Plan: the patient has CECELIA. Urine electrolytes are non pre renal. Renal ultrasound shows atrophy of the right kidney. Serology shows a mildly low C3. Otherwise pending immunofixation pending most likely her chronic kidney disease if she has it is due to the 1 small kidney. low cardiac output, chronic diuretics and hypertensioncould be playing a role as well. The question is whether it stage II or stage III. We can follow as an outpatient to see how it goes. She will make an appointment 3-4 weeks. Her acute kidney injury is most likely due to dehydration. She was on diuretics. Now she is eating better. We should hold the diuretics for another few days and then check another renal panel. She should follow closely with (2) Combined systolic and diastolic cardiac dysfunction: Code(s): I51.89 - Other ill-defined heart diseases Status: Acute Assessment and Plan: the patient has a low ejection fraction also has diastolic dysfunction. 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 (3) Chronic hypercapnic respiratory failure: Code(s): J96.12 - Chronic respiratory failure with hypercapnia Status: Acute Assessment and Plan: She has emphysema. (4) Tobacco abuse: Code(s): Z72.0 - Tobacco use Status: Acute Assessment and Plan: She continues to smoke half a pack per day. I encouraged her to stop. (5) Essential hypertension: Code(s): I10 - Essential (primary) hypertension Status: Acute Assessment and Plan: Her blood pressure is well controlled. (6) Raynaud disease: Code(s): I73.00 - Raynaud's syndrome without gangrene Status: Acute Assessment and Plan: No symptoms of this currently. Subjective Date/time seen: 01/22/20 13:45 Interval history: Patient is feeling better. She is eating well and drinking well. No shortness of breath or swelling Review of Systems Cardiovascular: Cardiovascular: Reports no additional cardiovascular complaints Respiratory: Respiratory: Reports no additional respiratory complaints Gastrointestinal: Gastrointestinal: Reports no additional gastrointestinal complaints Genitourinary: Genitourinary: Reports no additional female genitourinary complaints Exam Narrative: Exam Narrative: WDWN in NAD skin no rash head ncat lungs clear cor reg no rub abd BS+ nontender and soft ext no edema. Objective Data Vital Signs Vital Signs: Vital Signs - 24 hr 01/21/20 14:00 01/21/20 14:40 01/21/20 14:49 Temperature Pulse Rate 64 55 L 60 Respiratory Rate 16 16 Blood Pressure Pulse Oximetry 01/21/20 16:00 01/21/20 18:30 01/21/20 19:47 Temperature 36.2 C L 36.6 C Pulse Rate 60 58 L 55 L Respiratory Rate 20 18 Blood Pressure 155/65 H 139/52 L Pulse Oximetry 100 98 01/21/20 20:00 01/21/20 21:17 01/21/20 22:00 Temperature Pulse Rate 57 L 57 L 57 L Respiratory Rate Blood Pressure Pulse Oximetry 01/21/20 23:31 01/22/20 00:00 01/22/20 01:33 Temperature 36.5 C Pulse Rate 56 L 56 L 57 L Respiratory Rate 18 16 Blood Pressure 120/50 L Pulse Oximetry 99 01/22/20 01:36 01/22/20 01:44 01/22/20 02:00 Temperature Pulse Rate 57 L 58 L 59 L Respiratory Rate 16 16 Blood Pressure Pulse Oximetry 97 01/22/20 04:00 01/22/20 06:00 01/22/20 07:21 Temperature 36.8 C 36.6 C Pulse Rate 56 L 60 58 L Respiratory Rate 16 18 Blood Pressure 103/61 141/56 H Pulse Oximetry 100 100 01/22/20 08:06 01/22/20 08:16 01/22/20 09:58 Temperature
[2020-01-22 16:30] LABS: Glucose Point of Care 155 (65-105)
--- NOTE | 2020-01-22 17:12 | PM.DS ---
DS: Admitting Diagnosis Admitting Diagnosis Admitting Diagnosis: Acute kidney failure with acute cortical necrosis DS: Discharge Diagnosis Discharge Diagnosis (1) Acute renal failure: Qualifiers: Acute renal failure type: with acute renal cortical necrosis Qualified Code(s): N17.1 - Acute kidney failure with acute cortical necrosis Code(s): N17.9 - Acute kidney failure, unspecified Status: Acute Assessment and Plan: Possibly prerenal in nature given the patient's multiple diuretic Use or due to nephrotoxic medications with Entresto use. the patient's spironolactone, Entresto and Lasix have been held. The patient did receive 1 L normal saline bolus in the ER and she is receiving 50 mL an hour of normal saline. Will need to monitor her fluid status closely given her ejection fraction of 20%. repeat electrolyte panel has been ordered for this a.m.. Renal ultrasound has been ordered. Nephrology has been consulted. 01/21/20 17:21 patient is 64-year-old female with history of systolic diastolic congestive heart with ejection fraction of 25-30%, chronic pain for which patient is on methadone, and history of rheumatoid arthritis, apparently patient fell at home, see tripped over toy, see was not able to get up from the floor and her neighbor helped her and called EMS and patient was brought to the emergency department for further evaluation, patient is found to have acute on chronic kidney disease with significant elevation of BUN andcreatinine 93 and 4.8 respectively, patient is seen by Nephrology and suspect most likely dehydration as well as patient was diuresed with furosemide, spironolactone, and entersto, most likely multifactorial, workup is in progress, patient was seen by Cardiology and patient is off furosemide spironolactone and entersto, patient is being gently hydrate very carefully as her EF is 25-30%, will continue to monitor (2) Chronic hypercapnic respiratory failure: Code(s): J96.12 - Chronic respiratory failure with hypercapnia Status: Acute Assessment and Plan: the patient's hypercarbia appears relatively stable compared to prior values. The majority of patient's acidosis is metabolic in nature. Will repeat ABG this a.m.. (3) Chronic pain syndrome: Code(s): G89.4 - Chronic pain syndrome Status: Acute Assessment and Plan: Patient was actually significantly somnolent in the ER. She has asked for pain medications multiple times since admission but when the nurse goes back into the room to re-evaluate the patient she is sleeping again. Nursing staff contacted the center that prescribes the patient's methadone. Her methadone dose was confirmed. after multiple discussions with pharmacy they feel more comfortable giving the patient 75 mg of methadone 3 times a day instead of giving her 225 mg once a day. We do not have the liquid formulation of the methadone that the patient usually takes at home. The patient reports that she has not had her methadone since the morning of the . Despite not having her methadone dosing yesterday patient was somnolent in the ER. Will need to watch the patient's neuro status closely. (4) Prolonged QT interval: Code(s): R94.31 - Abnormal electrocardiogram [ECG] [EKG] Status: Acute Assessment and Plan: the patient's Zofran and hydroxyzine will be discontinued. Will need to monitor the patient on telemetry given her QT prolongation with the use of methadone. DS: Summary Hospital Course Reason for hospitalization: Alyssa Poole is a 64 year old female with a past medical history of chronic pain syndrome on chronic methadone, chronic hypercarbia, chronic bolus emphysema and bronchiectasis, and chronic combined systolic diastolic heart failure with life vest who presented to the ER via EMS after being found on the floor. the patient reported that she had gotten up to go t
--- NOTE | 2020-01-22 18:15 | PCDIET ---
Patient is transferring to med/tele. Patient needs to speak to care coordination regarding safe home discharge. Patient has a history of multiple falls and lives alone.
[2020-01-22 20:21] LABS: Glucose Point of Care 147 (65-105)
[2020-01-23] VITALS (10 sets, daily range): BP systolic 145–164; BP diastolic 56–74; PULSE 61–102; RESP 18; TEMP 36.4–36.7; O2SAT 96–100
[2020-01-23] MEDS: ALBUTEROL SULFATE NEB 2.5 MG/0.5 ML INH 5 MG INHALATION ×2 (01:54→08:55)
[2020-01-23] MEDS: IPRATROPIUM BR 0.02% INH SOLN 0.5 MG/2.5 ML VIAL INHALATION ×2 (01:55→08:55)
[2020-01-23 05:02] LABS: Hemoglobin 9.9 g/dL (12.0-15.0); Mean Corpuscular Hemoglobin 28.7 pg (26-34); Mean Platelet Volume 11.9 fl (7.4-10.4); Platelet Count Result 181 k/mm3 (150-375); Red Blood Count 3.45 M/mm3 (4.2-5.4); White Blood Count 7.4 K/mm3 (4.5-10.0)
[2020-01-23 05:20] LABS: Alanine Aminotransferase 13 U/L (4-35); Albumin Level 3.4 g/dL (3.5-5.1); Alkaline Phosphatase 84 U/L (38-126); Anion Gap 11.7 mmol/L (7-16); Aspartate Amino Transferase 22 U/L (14-36); Bilirubin,Total 0.2 mg/dL (0.2-1.3); Blood Urea Nitrogen 48 mg/dL (7-17); Calcium 8.9 mg/dL (8.4-10.2); Carbon Dioxide 25 mmol/L (22-30); Chloride 105 mmol/L (98-107); Estimated CRCL calculation 25 ml/min; Estimated Glomerular Filt Rate 27; Glucose 71 mg/dL (65-105); Phosphorus 3.5 mg/dL (2.5-4.5); Potassium 4.7 mmol/L (3.4-5.0); Sodium 137 mmol/L (137-145)
[2020-01-23] MEDS: ACETAMINOPHEN 325 MG TABLET 650 MG PO (06:02)
[2020-01-23] MEDS: METHADONE HCL 5 MG PO ×2 (06:03→13:07)
[2020-01-23] MEDS: SODIUM CHLORIDE 0.9% IV 1,000 ML 50 ML IV CONT (06:05)
[2020-01-23 07:39] LABS: Glucose Point of Care 98 (65-105)
--- NOTE | 2020-01-23 07:42 | PM.PNCARD ---
Progress Note: A&P Assessment and Plan (1) Acute renal failure: Qualifiers: Acute renal failure type: with acute renal cortical necrosis Qualified Code(s): N17.1 - Acute kidney failure with acute cortical necrosis Code(s): N17.9 - Acute kidney failure, unspecified Status: Acute Assessment and Plan: Nephrology following. Probably over-diuresed and could be related to starting Entresto. (2) Tobacco abuse: Code(s): Z72.0 - Tobacco use Status: Acute (3) Combined systolic and diastolic cardiac dysfunction: Code(s): I51.89 - Other ill-defined heart diseases Status: Acute Assessment and Plan: She has Life Vest on to prevent sudden cardiac arrest. On Coreg. Agree with IVF NS at 50 ml/hr to rehydrate and improve kidney function. Agree to hold Lasix and Spironolactone, and will eventually need to go back on low dose Lasix to maintain euvolemia. Would consider georgette inh or ARB rather than Entresto once kidney function stabilizes in order to improve EF. (4) Essential hypertension: Code(s): I10 - Essential (primary) hypertension Status: Acute Assessment and Plan: High today since off Entresto and Spironolactone due to renal failure. Start Hydralazine 25 mg TID. If BP controlled may d/c home and f/u with me in 1 week. Subjective Date/time seen: 01/23/20 07:42 Reports headaches this morning. No chest pain or sob. Exam Const: General: comfortable and no acute distress Neck: Neck: no JVD Carotids: no bruits Resp: Auscultation: clear to auscultation bilaterally, no crackles, no rales, no rhonchi and no wheezes Cardio: Rate: regular rate Rhythm: regular rhythm Heart sounds: no murmurs GI: Inspection: non-distended Neuro: Speech: normal speech Extrem: Right lower extremity: no edema Left lower extremity: no edema Objective Data Vital Signs Vital Signs: Vital Signs - 24 hr 01/22/20 08:00 01/22/20 08:06 01/22/20 08:16 Temperature Pulse Rate 56 L 62 60 Respiratory Rate 18 18 Blood Pressure Pulse Oximetry 99 01/22/20 09:58 01/22/20 10:00 01/22/20 12:00 Temperature 97.8 F Pulse Rate 57 L 55 L 59 L Respiratory Rate 18 Blood Pressure 140/58 L Pulse Oximetry 98 01/22/20 14:00 01/22/20 14:55 01/22/20 15:05 Temperature Pulse Rate 57 L 58 L 61 Respiratory Rate 18 18 Blood Pressure Pulse Oximetry 01/22/20 16:00 01/22/20 18:00 01/22/20 19:29 Temperature 97.4 F L 97.9 F Pulse Rate 56 L 69 62 Respiratory Rate 20 22 H Blood Pressure 149/64 H 161/61 H Pulse Oximetry 100 01/22/20 19:40 01/22/20 19:48 01/22/20 20:00 Temperature Pulse Rate 81 77 70 Respiratory Rate 16 16 Blood Pressure Pulse Oximetry 98 01/22/20 21:06 01/22/20 22:00 01/23/20 00:00 Temperature 98.0 F Pulse Rate 69 70 67 Respiratory Rate 18 Blood Pressure 145/56 H Pulse Oximetry 97 01/23/20 01:55 01/23/20 02:00 01/23/20 02:03 Temperature Pulse Rate 76 66 72 Respiratory Rate 18 18 Blood Pressure Pulse Oximetry 01/23/20 04:00 01/23/20 06:00 Temperature 97.7 F Pulse Rate 63 63 Respiratory Rate 18 Blood Pressure 164/74 H Pulse Oximetry 96 Intake/Output Intake/Output: Intake & Output 01/20/20 01/21/20 01/22/20 01/23/20 23:59 23:59 23:59 23:59 Intake Total 1000 1975 2868 1450 Output Total 1822 1450 750 Balance 9678 741 2724 700 Meds/Results Medications: Active Medications Generic Name Dose Route Start Last Admin Trade Name Freq PRN Reason Stop Dose Admin Acetaminophen 650 mg 01/21/20 02:23 01/23/20 06:02 Tylenol Tablet PO 650 mg Q4H PRN Administration Mild Pain (1-3) or Fever Albuterol 5 mg 01/20/20 20:00 01/23/20 01:54 Albuterol Sulf Neb 2.5mg/0.5ml INHALATION 5 mg Q6HRT FABIOLA Administration Budesonide/Formoterol Fumarate 2 puff 01/21/20 08:00 01/22/20 19:38 Symbicort 160-4.5 Mcg (*Sp) Inhaler INHALATION 2 puff Q12HRT FABIOLA
[2020-01-23] MEDS: PANTOPRAZOLE SOD SESQUIHYDRATE 20 MG TAB PO (09:33)
[2020-01-23] MEDS: carvediloL 3.125 MG TABLET PO (09:33)
[2020-01-23] MEDS: hydrALAZINE HCL 25 MG TABLET PO (09:34)
[2020-01-23] MEDS: GABAPENTIN 300 MG CAPSULE PO ×2 (09:34→12:50)
[2020-01-23] MEDS: HEPARIN SODIUM 5,000 UNITS/ML VIAL 5000 UNITS SUB-Q (09:34)
[2020-01-23] MEDS: VENLAFAXINE HCL 75 MG TABLET 300 MG PO (10:03)
--- NOTE | 2020-01-23 12:08 | PC.NURSE ---
This patient, Alyssa Poole, was received from [facility] on 01/23/20 at 1203. Personal belongings list checked and signed. Patient/family oriented to unit policies and routines. Report received from Caryn ROBERSON
[2020-01-23 12:37] LABS: Glucose Point of Care 139 (65-105)
[2020-01-23] MEDS: hydrALAZINE HCL 50 MG TABLET PO (12:50)
[2020-01-25 00:26] LABS: Lambda Light Chain 30.5 mg/L (5.7-26.3)
[2020-01-26 18:59] LABS: Complement Total CH50 57 U/mL (31-60)
== END 2020-01-23 15:14 | disposition home health service (06) | DRG 683 ==
LOC: ANHED 14:51 → ANHIMU 19:28 → ANH2MED 01-23 13:01 → ANHIMU 01-25 16:30
PROVIDERS: Internal Medicine; Internal Medicine Nephrology; Admitting Provider Internal Medicine; Emergency Provider General Practice; PCP Family Medicine; Visit Provider Family Medicine
DX: N17.1 Acute kidney failure with acute cortical necrosis (principal); J96.12 Chronic respiratory failure with hypercapnia; I13.0 Hypertensive heart and chronic kidney disease with heart failure and stage 1 through stage 4 chronic kidney disease, or unspecified chronic kidney disease; I50.42 Chronic combined systolic (congestive) and diastolic (congestive) heart failure; I27.21 Secondary pulmonary arterial hypertension; N18.3 Chronic kidney disease, stage 3 (moderate); E86.0 Dehydration; M54.5 Low back pain; G89.4 Chronic pain syndrome; J43.9 Emphysema, unspecified; F17.210 Nicotine dependence, cigarettes, uncomplicated; E78.2 Mixed hyperlipidemia; I73.00 Raynaud's syndrome without gangrene; M06.89 Other specified rheumatoid arthritis, multiple sites; K21.9 Gastro-esophageal reflux disease without esophagitis; R94.31 Abnormal electrocardiogram [ECG] [EKG]; F32.9 Major depressive disorder, single episode, unspecified; N39.46 Mixed incontinence; W01.0XXA Fall on same level from slipping, tripping and stumbling without subsequent striking against object, initial encounter; Z91.81 History of falling; Z79.891 Long term (current) use of opiate analgesic; Z79.899 Other long term (current) drug therapy
CPT/HCPCS: 36415; 36600; 51701; 70450; 71045; 72170; 73564; 74176; 76775; 80053; 81001; 82375; 82550; 82570; 82805; 83050; 83605; 83690; 83735; 83883; 84100; 84133; 84300; 84484; 85025; 85027; 85610; 85652; 85730; 86038; 86160; 86162; 86334; 86335; 93005; 94003; 94640; 96360; 97110; 97116; 97161; 97165; 97530; 97535; 99291; A9270; J1644; J7030

== ENCOUNTER 2020-03-29 09:04 | Outpatient (CLI) | payer OTHER, MEDICAID, SELFPAY ==
--- NOTE | 2020-03-29 09:16 | ECHO_ITS ---
Patient Info Name: Alyssa Poole Age: 64 years : 1955 Gender: Female Ht: 65 in Wt: 130 lbs BSA: 1.65 m2 HR: 55 bpm BP: 134 / 66 mmHg Heart Rhythm: Left Bundle Branch Block Technical Quality: Good Exam Date: 03/29/2020 9:31 AM Exam Location: [facility] Patient Status: Outpatient Admit Date: 03/29/2020 Staff Ordering Physician: Calos Ramos DO Instrument And Control Technician: Juan J Salazar RDCS Attending Provider: Calos Ramos DO Referring Physician: Richard LOBO; Exam Type: CA echo doppler color flow Study Info Indications I51.89 - Other ill-defined heart diseases Complete two-dimensional, color flow and Doppler transthoracic echocardiogram is performed. Strain analysis performed. History/Risk Factors Systolic heart failure. Summary 1. Complete two-dimensional, color flow and Doppler transthoracic echocardiogram is performed. 2. Left ventricular chamber dimension is moderately enlarged. 3. Left ventricular systolic function is moderately reduced, estimated at 35-40%. 4. The left ventricular diastolic function is grade IV diastolic dysfunction. 5. E/e' 15 is elevated. 6. Global longitudinal strain is abnormal at -11.1%. 7. Left atrial chamber dimension is severely enlarged. 8. Right atrial chamber dimension is moderately enlarged. 9. The mitral valve has mildly thickened leaflets and mildly calcified annulus. 10. There is moderate mitral valve regurgitation. 11. Moderate to severe pulmonary hypertension, estimated pulmonary arterial systolic pressure is 62 mmHg. 12. There is mild to moderate tricuspid valve regurgitation. Left Ventricle E/e' 15 is elevated. Global longitudinal strain is abnormal at -11.1%. Left ventricular chamber dimension is moderately enlarged. Left ventricular systolic function is moderately reduced, estimated at 35-40%. The left ventricular diastolic function is grade IV diastolic dysfunction. Right Ventricle Right ventricular chamber dimension is normal. Right ventricular systolic function is normal. Left Atria Left atrial chamber dimension is severely enlarged. Right Atria Right atrial chamber dimension is moderately enlarged. Aortic Valve The aortic valve is trileaflet. There is no aortic valve stenosis. There is no aortic valve regurgitation. Pulmonic Valve There is no pulmonic regurgitation. Mitral Valve The mitral valve has mildly thickened leaflets and mildly calcified annulus. There is no mitral valve stenosis. There is moderate mitral valve regurgitation. Tricuspid Valve Moderate to severe pulmonary hypertension, estimated pulmonary arterial systolic pressure is 62 mmHg. There is mild to moderate tricuspid valve regurgitation. Pericardium/Pleural There is no pericardial effusion. Inferior Vena Cava Normal inferior vena cava with >50% collapse upon inspiration consistent with normal right atrial pressure, 5 mmHg. Aorta The aortic root size at the sinus of Valsalva is normal. Left Ventricular Outflow Tract Name Value Normal LVOT 2D LVOT Diameter 2.0 cm LVOT Doppler LVOT Peak Gradient 3 mmHg
== END 2020-03-29 09:05 | disposition home or self-care (01) ==
PROVIDERS: PCP Family Medicine; Visit Provider Internal Medicine Cardiovascular Disease
DX: I34.0 Nonrheumatic mitral (valve) insufficiency (principal); I07.1 Rheumatic tricuspid insufficiency
CPT/HCPCS: 93306

== ENCOUNTER → 2020-04-03 12:36 | Outpatient (CLI) | payer OTHER, MEDICAID, SELFPAY ==
--- NOTE | ~2020-04-03 | XR_ITS ---
XR ribs LT 2V w CXR 2V DATE: 04/03/2020 13:10 INDICATION: Injury. Left chest pain TECHNIQUE: PA and lateral chest. 3 views of left ribs. COMPARISON: 01/20/2020 portable AP chest FINDINGS: Cardiomegaly. Aortic calcification. Mild bilateral apical capping. The lungs appear hyperinflated. No pulmonary infiltrate or consolidation, pleural effusion or pulmona ry vascular congestion or pneumothorax is evident. No recent left rib fracture is identified. Diffuse osteopenia. There is prominent rotatory dextro scoliosis and multilevel degenerative disc disease of the lumbar s pine. IMPRESSION: Cardiomegaly Aortic atherosclerosis No apparent recent left rib fracture Reviewed, dictated and finalized at location A.
--- NOTE | ~2020-04-03 | XR_ITS ---
XR hip RT min 2V DATE: 04/03/2020 13:41 INDICATION: Fall from porch. Anterior and posterior right hip pain TECHNIQUE: AP, lateral and cross table lateral views COMPARISON: None FINDINGS: Degenerative disc disease of the lumbar and lumbosacral spine. No fracture or dislocation, avascular necrosis or bone destruction. Right hip joint space is well preserved. The pubic symphysi s and sacroiliac joints are intact. IMPRESSION: No fracture or dislocation of the right hip Multilevel degenerative disc disease of the lumbar/upper sacral spine Reviewed, dictated and finalized at location A.
== END ==
PROVIDERS: Visit Provider Family Medicine
DX: M25.551 Pain in right hip (principal); T14.90XA Injury, unspecified, initial encounter; M51.37 Other intervertebral disc degeneration, lumbosacral region; I51.7 Cardiomegaly; I70.0 Atherosclerosis of aorta
CPT/HCPCS: 71046; 71100; 73502

== ENCOUNTER 2020-10-18 17:03 | Emergency (ER) | payer OTHER, SELFPAY ==
--- NOTE | ~2020-10-18 | CT_ITS ---
EXAMINATION: CT lumbar spine wo con DATE: 10/18/2020 18:35 INDICATION: Low back pain after fall. Recent lumbar surgery. TECHNIQUE: Computed tomography (CT) of the lumbar spine was performed without intravenous contrast. T he dose-length product was 323.97 mGy-cm. Automated exposure control and iterative reconstruction edy hnique were employed. COMPARISON: CT abdomen dated 01/20/2020 FINDINGS: There is a superior endplate compression deformity of L1 with approximately 15% loss of vic tebral body height anteriorly. This is chronic and unchanged. There is a left L1 transverse process a nd spinous process fractures. There is a nondisplaced fracture of the right facet joint at L1. At L2 there is right transverse process fracture. At L3 there is a right transverse process fracture. There is bone marrow donor site lateral margin of the right ilium. There is disc narrowing at all lumbar l evels with retrolisthesis at L2-3, likely chronic. There is moderate multilevel facet hypertrophy. Em physema is noted in the lung bases. There is dextroscoliosis of the lumbar spine. IMPRESSION: 1. Multiple lumbar spine fractures involving L1 left transverse process, spinous process and right fa cet joint, L2 right transverse process and L3 right transverse process. 2: Chronic superior endplate compression deformity of L1. 3: Severe lumbar spondylosis. Reviewed, dictated and finalized at location A. IMPRESSION: 1. Multiple lumbar spine fractures involving L1 left transverse process, spinou s process and right facet joint, L2 right transverse process and L3 right trans verse process. 2: Chronic superior endplate compression deformity of L1. 3: Severe lumbar spondylosis.
[2020-10-18 17:06] VITALS: BP 174/72; PULSE 79; RESP 20; TEMP 36.8; O2SAT 100
--- NOTE | 2020-10-18 17:48 | PC.NURSE ---
Pt sobbing loudly, requests pain medications. Explained that ERP will be enroute shortly to see her.
--- NOTE | 2020-10-18 18:02 | PC.NURSE ---
Report to DA Correa, to continue care. EVAN Swift, at bedside for exam.
--- NOTE | 2020-10-18 18:10 | ED.BACK ---
HPI - Back Pain/Injury General Chief Complaint: Back Pain/Injury Stated Complaint: Fall Time Seen by Provider: 10/18/20 17:41 Source: patient Mode of arrival: EMS Limitations: no limitations History of Present Illness HPI Narrative: This is a 64-year-old female that presents the emergency department for low back pain after a fall today. Reports she was trying to pull her couch out of the way so she could get to her phone. Reports this caused her to fall backwards and her back hit a side table. Reports she recently had lumbar spine surgery in this area. This was done at [facility]. Reports she had her follow-up appointment 2 days ago and everything was going well. Denies hitting her head, loss of consciousness, other injuries, weakness, or numbness. Related Data Home Medications Medication Instructions Recorded Confirmed methadone 225 mg PO DAILY 01/21/20 08/07/20 Allergies Allergy/AdvReac Type Severity Reaction Status Date / Time codeine Allergy Unknown Not Unverified 08/07/20 10:02 Entered,Unknown Iodinated Contrast Media Allergy Unknown Unknown Verified 08/07/20 10:02 iodine Allergy Unknown Anaphylactic Verified 08/07/20 10:02 Shock Iodine and Iodide Containing Allergy Unknown Anaphylaxis Verified 08/07/20 10:02 Produc tramadol Allergy Unknown Not Unverified 08/07/20 10:02 Entered,Unknown NSAIDS (Non-Steroidal Allergy Unknown Verified 08/07/20 10:02 Anti-Inflamma Contrast Media Allergy Unknown Unknown Uncoded 08/07/20 10:02 Review of Systems Review of Systems: Narrative: CONSTITUTIONAL: Denies fever MUSCULOSKELETAL: Reports back pain, and myalgia. NEUROLOGIC: Denies numbness, or weakness. All systems reviewed & are unremarkable except as noted in HPI and below [facility] Past Medical History Medical History (Updated 10/18/20 @ 19:32 by Jeniffer Saul PA-C) Anxiety disorder, unspecified Arthritis Atherosclerosis of aorta Chronic bilateral low back pain without sciatica Chronic hypercapnic respiratory failure Chronic pain syndrome CKD (chronic kidney disease) stage 3, GFR 30-59 ml/min Combined systolic and diastolic cardiac dysfunction Echocardiogram November 29, 2019 demonstrated echocardiogram of 25-30%, grade 2 diastolic dysfunction, moderate left ventricular enlargement, mild to moderate mitral valve regurgitation, moderate pulmonary hypertension with RVSP of 52 . 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 Memory deficits Methadone maintenance therapy patient Mixed hyperlipidemia Mixed incontinence Moderate pulmonary arterial systolic hypertension Estimated pulmonary arterial systolic pressure of 52 mmHg on echocardiogram in November 2019 Myocardial infarct, old Reportedly hospitalized at [facility], treated medically. Neurotic excoriations Raynaud disease She has had extensive testing done by a local classification and treatment director, for which she ruled out for scleroderma. Rheumatoid arthritis involving multiple sites Rotator cuff tendonitis Shingles (herpes zoster) polyneuropathy Surgical History Surgical History H/O cervical spinal arthrodesis H/O shoulder surgery History of hysterectomy History of lumpectomy of left breast Hx of neck surgery Family History Family History Mother Depression Hypertension Arthritis SLATE TRIMMER
[2020-10-18] MEDS: MORPHINE SULFATE (*CRX) 4 MG/ML INJ IV PUSH (18:24)
[2020-10-18] MEDS: ONDANSETRON INJ 4 MG/2 ML VIAL IV PUSH (18:25)
--- NOTE | 2020-10-18 18:25 | PC.NURSE ---
pt to CT at this time
[2020-10-18] MEDS: HYDROmorphone HCL INJ (*CRX) 1 MG/ML SYR 0.5 MG IV PUSH ×2 (19:28→21:04)
--- NOTE | 2020-10-18 19:43 | PC.NURSE ---
called [facility] to request transport to [facility]. ETA [phone]
[2020-10-18 21:05] VITALS: BP 155/70; PULSE 70; RESP 18; O2SAT 100
--- NOTE | 2020-10-18 21:11 | PC.NURSE ---
[facility] here.
[2020-10-18] MEDS: LORazepam INJ (*CRX) 2 MG/ML VIAL 0.5 MG IV PUSH (21:18)
[2020-10-18 21:24] VITALS: BP 157/74; PULSE 75; RESP 18; O2SAT 100
== END 2020-10-18 21:28 | disposition short-term general hospital (02) ==
PROVIDERS: Emergency Provider Emergency Medicine; PCP Family Medicine
DX: S32.018A Other fracture of first lumbar vertebra, initial encounter for closed fracture (principal); S32.028A Other fracture of second lumbar vertebra, initial encounter for closed fracture; S32.038A Other fracture of third lumbar vertebra, initial encounter for closed fracture; J96.12 Chronic respiratory failure with hypercapnia; G89.4 Chronic pain syndrome; I13.0 Hypertensive heart and chronic kidney disease with heart failure and stage 1 through stage 4 chronic kidney disease, or unspecified chronic kidney disease; N18.30 Chronic kidney disease, stage 3 unspecified; I50.40 Unspecified combined systolic (congestive) and diastolic (congestive) heart failure; I25.2 Old myocardial infarction; E78.2 Mixed hyperlipidemia; I27.21 Secondary pulmonary arterial hypertension; I73.00 Raynaud's syndrome without gangrene; M06.89 Other specified rheumatoid arthritis, multiple sites; F41.9 Anxiety disorder, unspecified; F32.9 Major depressive disorder, single episode, unspecified; M19.012 Primary osteoarthritis, left shoulder; M47.812 Spondylosis without myelopathy or radiculopathy, cervical region; M47.816 Spondylosis without myelopathy or radiculopathy, lumbar region; K21.9 Gastro-esophageal reflux disease without esophagitis; Z98.1 Arthrodesis status; F17.210 Nicotine dependence, cigarettes, uncomplicated; W01.190A Fall on same level from slipping, tripping and stumbling with subsequent striking against furniture, initial encounter
CPT/HCPCS: 72131; 96374; 96375; 96376; 99284; 99285; J0131; J1170; J2060; J2270; J2405

== ENCOUNTER 2021-04-01 10:57 | Outpatient (CLI) | payer OTHER, MEDICAID, SELFPAY ==
[2021-04-01 21:37] LABS: Anion Gap 5 mmol/L (8-16); Blood Urea Nitrogen 34 mg/dL (7-17); Calcium 9.3 mg/dL (8.4-10.2); Carbon Dioxide 32 mmol/L (22-30); Chloride 103 mmol/L (98-107); Estimated Glomerular Filt Rate 28; Glucose 99 mg/dL (65-110); Potassium 3.8 mmol/L (3.4-5.0); Sodium 140 mmol/L (137-145)
[2021-04-09 07:45] LABS: Parathyroid Hormone Related Pr 16 pg/mL (11-20)
== END 2021-04-01 10:58 | disposition home or self-care (01) ==
PROVIDERS: PCP Family Medicine; Visit Provider Family Medicine
DX: N18.9 Chronic kidney disease, unspecified (principal)
CPT/HCPCS: 36415; 80048; 83519